=== PATIENT | male | born 1940 | race Caucasian/White ===

== ENCOUNTER 2018-03-02 08:49 | Inpatient (IN) | payer MEDICARE, BC ==
[2018-03-01 10:33] LABS: BASOPHILS % (AUTO) 0.7 % (0-1); EOSINOPHILS # (AUTO) 0.2 X10'3 (0-0.9); HEMATOCRIT 38.6 % (42.0-52.0); LYMPHOCYTES # (AUTO) 1.2 X10'3 (1.1-4.8); LYMPHOCYTES % (AUTO) 18.4 % (21-51); MEAN CORPUSCULAR HEMOGLOBIN 31.4 PG (27.0-31.0); MEAN CORPUSCULAR HGB CONC 33.7 % (33.0-36.5); MEAN CORPUSCULAR VOLUME 93.2 FL (78-98); MEAN PLATELET VOLUME 7.7 FL (7.4-10.4); MONOCYTES # (AUTO) 0.5 X10'3 (0-0.9); MONOCYTES % (AUTO) 7.2 % (2-12); NEUTROPHILS # (AUTO) 4.6 X10'3 (1.8-7.7); NEUTROPHILS % (AUTO) 70.7 % (42-75); PLATELET COUNT 241 X10'3 (140-440); RED BLOOD COUNT 4.14 X10'6 (4.70-6.10); RED CELL DISTRIBUTION WIDTH 14.1 % (11.5-14.5); WHITE BLOOD COUNT 6.5 X10'3 (4.5-11.0)
[2018-03-01 10:53] LABS: INR 1.1 INR; PARTIAL THROMBOPLASTIN TIME 27 SECONDS (22-32); PROTHROMBIN TIME 10.7 SECONDS (9.0-12.0)
[2018-03-01 10:54] LABS: ALBUMIN 3.7 G/DL (3.4-5.0); ANION GAP 6 (8-16); BLOOD UREA NITROGEN 11 MG/DL (7-18); BUN/CREATININE RATIO 10.5 (5.4-32.0); CALCIUM 9.2 MG/DL (8.5-10.1); CHLORIDE 100 MMOL/L (99-107); CHOL/HDL RATIO 2.1 (0.00-4.99); CHOLESTEROL 113 MG/DL (0-200); CREATININE 1.05 MG/DL (0.60-1.10); GLUCOSE 246 MG/DL (70-104); HDL CHOLESTEROL 53 MG/DL (35-60); LDL CHOLESTEROL 53 MG/DL (50-100); POTASSIUM 4.4 MMOL/L (3.5-5.1); SODIUM 135 MMOL/L (135-145); TOTAL CARBON DIOXIDE 28.9 MMOL/L (24-32); TRIGLYCERIDES 56 MG/DL (20-135); eGFR 68 ML/MIN
[~2018-03-02] VITALS: Ht 177.8 cm; Wt 96.0 kg
[2018-03-02] VITALS (15 sets, daily range): BP systolic 123–168; BP diastolic 62–77
[~2018-03-02 08:49] MED LIST: ASPI-1265 PO; ATOR40TA PO; BISO1TAB39 PO; CLOP75TA35 PO; FAMO-1 PO; GLUC-153 PO; LISI-222 PO; METF-436 PO; MULT-785 PO; NABU-102 PO; NIFE30TA88 PO; NITR0.4T SL; OMEG1CAP54 PO; VITA400T10 PO
[2018-03-02] MEDS ORDERED: normal saline 1000ml 1,000 ML IV SCH (09:05)
[2018-03-02] MEDS ORDERED: LORazepam 0.5 MG tablet PO PRN (09:05)
[2018-03-02] MEDS ORDERED: diphenhydrAMINE 25mg capsule PO PRN (09:05)
[2018-03-02] MEDS ORDERED: METH500C6 PO (09:20)
[2018-03-02] MEDS ORDERED: GLUC15006 PO (09:20)
[2018-03-02] MEDS ORDERED: ASCO500C15 PO (09:24)
[2018-03-02] MEDS ORDERED: KRIL1CAP19 PO (09:24)
[2018-03-02] MEDS ORDERED: CHOL10002 PO (09:24)
[2018-03-02] MEDS ORDERED: midazolam 2 mg/2 ml injection ONE ×2 (10:46→12:54)
[2018-03-02] MEDS ORDERED: fentaNYL/PF 50MCG/1 ML 2ML syringe ONE ×2 (10:46→12:54)
[2018-03-02] MEDS ORDERED: heparin 1,000unit/ml 10ml vial 10 ML ONE ×2 (10:47→12:54)
[2018-03-02] MEDS ORDERED: iohexol 350 MG/ML 50ML vial IV ONE (10:47)
[2018-03-02] MEDS ORDERED: nitroGLYCERIN-Tridil 50MG/D5W 250 ML IV ONE (10:47)
[2018-03-02] MEDS ORDERED: LIDOcaine 1% (10mg/ml)w/preservative injection 20ml MDV ONE (10:47)
[2018-03-02] MEDS ORDERED: iohexol 350MG/ML 100ml bottle IV ONE ×3 (10:47→11:57)
[2018-03-02] MEDS ORDERED: heparin 25,000 UNIT/250ml bag 250 ML IV ONE (11:57)
[2018-03-02] MEDS ORDERED: heparin 1,000 UNITS/NS 500ml 500 ML ONE (12:04)
[2018-03-02] MEDS ORDERED: clopidogrel 300mg tablet ONE (12:25)
[2018-03-02] MEDS ORDERED: heparin 25,000 UNIT/250ml bag 250 ML IV SCH (14:17)
[2018-03-02] MEDS ORDERED: heparin 10,000 units/1 ML INJ IV ONE (14:20)
[2018-03-02] MEDS ORDERED: heparin 10,000 units/1 ML INJ IV PRN (14:20)
[2018-03-02] MEDS ORDERED: acetaminophen 325mg tablet PO PRN (14:25)
[2018-03-02] MEDS ORDERED: proCHLORperazine 10 MG/2 ml inj IV PRN (14:25)
[2018-03-02] MEDS ORDERED: magnesium hydroxide 30ml (MOM) UD suspension PO PRN (14:25)
[2018-03-02] MEDS ORDERED: HYDROcodone/acetaminophen 10/325mg tab PO PRN ×2 (14:25)
[2018-03-02] MEDS ORDERED: cyclobenzaprine 10mg tablet PO PRN (14:25)
[2018-03-02] MEDS ORDERED: aspirin 81mg tab.chew PO ONE (14:30)
[2018-03-02] MEDS ORDERED: nitroGLYCERIN 0.4mg SUBLingual tab SL SCH (14:40)
[2018-03-02] MEDS ORDERED: LIDOcaine 1% 30ml preserv. free vial ONE (15:41)
[2018-03-02] MEDS: hydrALAZINE 20mg/ml inj. IV PRN (17:40)
[2018-03-02] MEDS ORDERED: metFORMIN 500mg tablet PO SCH (20:00)
[2018-03-02] MEDS ORDERED: NABUMETONE 500 MG PO SCH (20:00)
[2018-03-02] MEDS ORDERED: non-formulary drug (Atorvastatin Calcium* (Lipitor*) 80 MG) PO SCH (21:00)
[2018-03-02] MEDS ORDERED: famotidine 20mg tablet PO SCH (21:00)
[2018-03-02] MEDS ORDERED: atorvastatin 20mg tablet PO SCH (21:00)
[2018-03-02] MEDS: sulindac 150mg tablet PO SCH (21:48)
[2018-03-02] MEDS: docusate sod 100mg capsule PO SCH ×2 (21:48→21:52)
[2018-03-02 22:42] LABS: BASOPHILS % (AUTO) 0.3 % (0-1); EOSINOPHILS # (AUTO) 0.1 X10'3 (0-0.9); EOSINOPHILS % (AUTO) 0.9 % (0-6); HEMATOCRIT 37.6 % (42.0-52.0); HEMOGLOBIN 12.7 g/dl (14.0-17.9); LYMPHOCYTES # (AUTO) 1.2 X10'3 (1.1-4.8); LYMPHOCYTES % (AUTO) 11.2 % (21-51); MEAN CORPUSCULAR HEMOGLOBIN 31.5 PG (27.0-31.0); MEAN CORPUSCULAR HGB CONC 33.9 % (33.0-36.5); MEAN PLATELET VOLUME 7.9 FL (7.4-10.4); MONOCYTES # (AUTO) 0.7 X10'3 (0-0.9); MONOCYTES % (AUTO) 6.5 % (2-12); NEUTROPHILS # (AUTO) 8.7 X10'3 (1.8-7.7); NEUTROPHILS % (AUTO) 81.1 % (42-75); PLATELET COUNT 203 X10'3 (140-440); RED BLOOD COUNT 4.04 X10'6 (4.70-6.10); RED CELL DISTRIBUTION WIDTH 14.4 % (11.5-14.5); WHITE BLOOD COUNT 10.7 X10'3 (4.5-11.0)
[2018-03-02 22:47] LABS: ALBUMIN 3.2 G/DL (3.4-5.0); ANION GAP 9 (8-16); BLOOD UREA NITROGEN 8 MG/DL (7-18); BUN/CREATININE RATIO 10.3 (5.4-32.0); CALCIUM 8.5 MG/DL (8.5-10.1); CHLORIDE 101 MMOL/L (99-107); CREATININE 0.78 MG/DL (0.60-1.10); GLUCOSE 144 MG/DL (70-104); MAGNESIUM 1.6 MG/DL (1.5-2.4); POTASSIUM 3.9 MMOL/L (3.5-5.1); SODIUM 134 MMOL/L (135-145); TOTAL CARBON DIOXIDE 24.2 MMOL/L (24-32); eGFR > 90 ML/MIN
[2018-03-02 23:09] LABS: INR 1.1 INR; PARTIAL THROMBOPLASTIN TIME 25 SECONDS (22-32); PROTHROMBIN TIME 11.2 SECONDS (9.0-12.0)
[2018-03-02 23:27] LABS: CHOL/HDL RATIO 2.2 (0.00-4.99); CHOLESTEROL 110 MG/DL (0-200); HDL CHOLESTEROL 51 MG/DL (35-60); LDL CHOLESTEROL 50 MG/DL (50-100); TRIGLYCERIDES 60 MG/DL (20-135)
[2018-03-03] VITALS (11 sets, daily range): BP systolic 135–158; BP diastolic 65–82
[2018-03-03 04:30] LABS: BASOPHILS % (AUTO) 0.3 % (0-1); EOSINOPHILS # (AUTO) 0.1 X10'3 (0-0.9); EOSINOPHILS % (AUTO) 1.6 % (0-6); HEMATOCRIT 36.4 % (42.0-52.0); HEMOGLOBIN 12.3 g/dl (14.0-17.9); LYMPHOCYTES % (AUTO) 13.2 % (21-51); MEAN CORPUSCULAR HEMOGLOBIN 31.4 PG (27.0-31.0); MEAN CORPUSCULAR HGB CONC 33.9 % (33.0-36.5); MEAN CORPUSCULAR VOLUME 92.7 FL (78-98); MEAN PLATELET VOLUME 7.5 FL (7.4-10.4); MONOCYTES # (AUTO) 0.5 X10'3 (0-0.9); MONOCYTES % (AUTO) 5.9 % (2-12); NEUTROPHILS # (AUTO) 6.2 X10'3 (1.8-7.7); PLATELET COUNT 219 X10'3 (140-440); RED BLOOD COUNT 3.93 X10'6 (4.70-6.10); RED CELL DISTRIBUTION WIDTH 14.1 % (11.5-14.5); WHITE BLOOD COUNT 7.9 X10'3 (4.5-11.0)
[2018-03-03 04:48] LABS: CHOL/HDL RATIO 2.2 (0.00-4.99); CHOLESTEROL 106 MG/DL (0-200); HDL CHOLESTEROL 49 MG/DL (35-60); LDL CHOLESTEROL 49 MG/DL (50-100); TRIGLYCERIDES 43 MG/DL (20-135)
[2018-03-03] MEDS ORDERED: METF-436 PO (07:26)
[2018-03-03] MEDS ORDERED: OMEGA PO SCH (08:00)
[2018-03-03] MEDS ORDERED: clopidogrel 75mg tablet PO SCH ×2 (08:00)
[2018-03-03] MEDS ORDERED: FISH OIL PO SCH (08:00)
[2018-03-03] MEDS ORDERED: non-formulary drug (Cholecalciferol (Vitamin D3) (Vitamin D3) 1 TAB) PO SCH (08:00)
[2018-03-03] MEDS ORDERED: BISOPROLOL PO SCH (08:00)
[2018-03-03] MEDS ORDERED: non-formulary drug (Krill/Om-3/Dha/Epa/Phospho/Ast (Krill Oil 500 mg Softgel) 1 TAB) PO SCH (08:00)
[2018-03-03] MEDS ORDERED: HCTZ PO SCH (08:00)
[2018-03-03] MEDS ORDERED: NIFEdipine XL 30mg tablet PO SCH (08:00)
[2018-03-03] MEDS ORDERED: NIFEDIPINE 30 MG PO SCH (08:00)
[2018-03-03] MEDS ORDERED: lisinopril 20mg tablet PO SCH (08:00)
[2018-03-03] MEDS ORDERED: non-formulary drug (Glucosamine HCl 1 TAB) PO SCH (08:00)
[2018-03-03] MEDS ORDERED: FATTY ACIDS PO SCH (08:00)
[2018-03-03] MEDS ORDERED: vitamin D (cholecalciferol) 1,000 unit tablet PO SCH (08:00)
[2018-03-03] MEDS ORDERED: ascorbic acid 500mg tablet PO SCH (08:00)
[2018-03-03] MEDS ORDERED: ZIAC PO SCH (08:00)
[2018-03-03] MEDS ORDERED: aspirin 81mg tab.chew PO SCH ×2 (08:00)
[2018-03-03] MEDS: docusate sod 100mg capsule PO SCH (09:01)
[2018-03-03] MEDS: sulindac 150mg tablet PO SCH (09:25)
[2018-03-03] MEDS: hydrALAZINE 20mg/ml inj. IV PRN (09:43)
== END 2018-03-03 10:30 | disposition home or self-care (01) | DRG 247 ==
LOC: SSTAY O 08:49 → CICU 2S 13:30
PROVIDERS: ADMIT Internal Medicine Cardiovascular Disease; ATTEND Internal Medicine Cardiovascular Disease
PROC: 4A023N7 Measurement of Cardiac Sampling and Pressure, Left Heart, Percutaneous Approach (ICD-10-PCS; principal; 2018-03-02)
PROC: B2111ZZ Fluoroscopy of Multiple Coronary Arteries using Low Osmolar Contrast (ICD-10-PCS; 2018-03-02)
PROC: B2151ZZ Fluoroscopy of Left Heart using Low Osmolar Contrast (ICD-10-PCS; 2018-03-02)
PROC: B2181ZZ Fluoroscopy of Left Internal Mammary Bypass Graft using Low Osmolar Contrast (ICD-10-PCS; 2018-03-02)
PROC: B2131ZZ Fluoroscopy of Multiple Coronary Artery Bypass Grafts using Low Osmolar Contrast (ICD-10-PCS; 2018-03-02)
PROC: 027136Z Dilation of Coronary Artery, Two Arteries with Three Drug-eluting Intraluminal Devices, Percutaneous Approach (ICD-10-PCS; 2018-03-02)
PROC: 02703ZZ Dilation of Coronary Artery, One Artery, Percutaneous Approach (ICD-10-PCS; 2018-03-02)
DX: T82.855A Stenosis of coronary artery stent, initial encounter (principal); T82.898A Other specified complication of vascular prosthetic devices, implants and grafts, initial encounter; Y71.3 Surgical instruments, materials and cardiovascular devices (including sutures) associated with adverse incidents; E11.9 Type 2 diabetes mellitus without complications; I10 Essential (primary) hypertension; E78.5 Hyperlipidemia, unspecified; I25.10 Atherosclerotic heart disease of native coronary artery without angina pectoris; K21.9 Gastro-esophageal reflux disease without esophagitis; E66.9 Obesity, unspecified; Y83.2 Surgical operation with anastomosis, bypass or graft as the cause of abnormal reaction of the patient, or of later complication, without mention of misadventure at the time of the procedure; Z90.49 Acquired absence of other specified parts of digestive tract; Z95.1 Presence of aortocoronary bypass graft; Z79.82 Long term (current) use of aspirin; Z79.84 Long term (current) use of oral hypoglycemic drugs; Z79.1 Long term (current) use of non-steroidal anti-inflammatories (NSAID); Z79.899 Other long term (current) drug therapy; Z82.49 Family history of ischemic heart disease and other diseases of the circulatory system; Z82.3 Family history of stroke; Y92.89 Other specified places as the place of occurrence of the external cause; Z68.30 Body mass index [BMI] 30.0-30.9, adult
CPT/HCPCS: 92937; 93459; C9600; 36415; 80048; 80061; 82948; 83735; 85025; 85347; 85610; 85730; 92920; 93005; 93455; 99152; 99153; A4620; A6257; C1725; C1769; C1874; C1894; C9601; G0378; J0360; J1644; J2001; J2250; J3010; J3490; J7030; Q0163; Q9967

== ENCOUNTER 2019-03-08 06:47 | Day surgery (SDC) | payer MEDICARE, BC ==
[2019-03-07 10:18] LABS: BASOPHILS # (AUTO) 0.1 X10'3 (0-0.2); BASOPHILS % (AUTO) 1.4 % (0-1); EOSINOPHILS # (AUTO) 0.2 X10'3 (0-0.9); EOSINOPHILS % (AUTO) 3.3 % (0-6); HEMATOCRIT 36.5 % (42.0-52.0); HEMOGLOBIN 12.6 g/dl (14.0-17.9); LYMPHOCYTES # (AUTO) 1.2 X10'3 (1.1-4.8); LYMPHOCYTES % (AUTO) 20.4 % (21-51); MEAN CORPUSCULAR HGB CONC 34.6 g/dL (33.0-36.5); MEAN CORPUSCULAR VOLUME 92.4 FL (78-98); MEAN PLATELET VOLUME 7.6 FL (7.4-10.4); MONOCYTES # (AUTO) 0.6 X10'3 (0-0.9); MONOCYTES % (AUTO) 9.5 % (2-12); NEUTROPHILS % (AUTO) 65.4 % (42-75); PLATELET COUNT 228 X10'3 (140-440); RED BLOOD COUNT 3.95 X10'6 (4.70-6.10); RED CELL DISTRIBUTION WIDTH 13.4 % (11.5-14.5); WHITE BLOOD COUNT 6.1 X10'3 (4.5-11.0)
[2019-03-07 10:39] LABS: ALBUMIN 3.6 G/DL (3.4-5.0); ANION GAP 9 (8-16); BLOOD UREA NITROGEN 12 MG/DL (7-18); BUN/CREATININE RATIO 12.2 (5.4-32.0); CALCIUM 9.2 MG/DL (8.5-10.1); CHLORIDE 97 MMOL/L (99-107); CREATININE 0.98 MG/DL (0.60-1.10); GLUCOSE 227 MG/DL (70-104); POTASSIUM 4.4 MMOL/L (3.5-5.1); SODIUM 132 MMOL/L (135-145); TOTAL CARBON DIOXIDE 26.1 MMOL/L (24-32); eGFR 74 ML/MIN
[2019-03-07 10:51] LABS: PARTIAL THROMBOPLASTIN TIME 27 SECONDS (22-32)
[2019-03-08] VITALS (16 sets, daily range): BP systolic 131–163; BP diastolic 69–88
[~2019-03-08] VITALS: Ht 179.1 cm; Wt 91.5 kg
[~2019-03-08 06:47] MED LIST changes: +ASCO500C15 PO; +CHOL10002 PO; -GLUC-153 PO; +GLUC15006 PO; +KRIL1CAP19 PO; +METH500C6 PO; -MULT-785 PO; -VITA400T10 PO
[2019-03-08] MEDS ORDERED: diphenhydrAMINE 25mg capsule PO PRN (07:25)
[2019-03-08] MEDS ORDERED: LORazepam 0.5 MG tablet PO PRN (07:25)
[2019-03-08] MEDS: normal saline 1,000 ML IV SCH ×2 (07:54→17:14)
[2019-03-08] MEDS ORDERED: midazolam 2 mg/2 ml injection ONE (09:16)
[2019-03-08] MEDS ORDERED: heparin 1,000unit/ml 10ml vial 10 ML ONE (09:16)
[2019-03-08] MEDS ORDERED: LIDOcaine 1% (10mg/ml)w/preservative injection 20ml MDV ONE (09:16)
[2019-03-08] MEDS ORDERED: fentaNYL/PF 50MCG/1 ML 2ML syringe ONE (09:16)
[2019-03-08] MEDS ORDERED: iohexol 350MG/ML 100ml bottle IV ONE ×2 (09:16→10:02)
[2019-03-08] MEDS ORDERED: iohexol 350 MG/ML 50ML vial IV ONE (09:16)
[2019-03-08] MEDS ORDERED: nitroGLYCERIN-Tridil 50MG/D5W 250 ML IV ONE (09:17)
== END 2019-03-08 20:00 | disposition home or self-care (01) ==
LOC: SSTAY O 06:47
PROVIDERS: ATTEND Internal Medicine Cardiovascular Disease
DX: R94.39 Abnormal result of other cardiovascular function study (principal); I25.10 Atherosclerotic heart disease of native coronary artery without angina pectoris; I25.82 Chronic total occlusion of coronary artery; I10 Essential (primary) hypertension; E11.9 Type 2 diabetes mellitus without complications; E78.5 Hyperlipidemia, unspecified; I25.2 Old myocardial infarction; E66.3 Overweight; Z68.29 Body mass index [BMI] 29.0-29.9, adult; Z95.5 Presence of coronary angioplasty implant and graft; Z87.891 Personal history of nicotine dependence; Z98.41 Cataract extraction status, right eye; Z98.42 Cataract extraction status, left eye; Z72.89 Other problems related to lifestyle; Z79.899 Other long term (current) drug therapy; Z79.01 Long term (current) use of anticoagulants; Z98.890 Other specified postprocedural states; Z90.49 Acquired absence of other specified parts of digestive tract; Z79.84 Long term (current) use of oral hypoglycemic drugs
CPT/HCPCS: 36415; 80048; 82948; 85025; 85610; 85730; 93005; 93459; 99152; 99153; C1769; J1644; J2001; J2250; J3010; J7030; Q0163; Q9967; A4620; A6258; C1760; C1894; J3490

== ENCOUNTER 2022-04-29 09:42 | Inpatient (IN) | payer MEDICARE, BC ==
[~2022-04-29] VITALS: Ht 177.8 cm; Wt 91.4 kg
[~2022-04-29 09:42] MED LIST changes: -ASCO500C15 PO; +ASCO500C18 PO; +CLOP75TA34 PO; -CLOP75TA35 PO; +NIFE-34 PO; -NIFE30TA88 PO
[2022-04-29 10:44] LABS: BASOPHILS # (AUTO) 0.1 X10'3 (0-0.2); BASOPHILS % (AUTO) 0.9 % (0-1); EOSINOPHILS # (AUTO) 0.1 X10'3 (0-0.9); EOSINOPHILS % (AUTO) 1.7 % (0-6); LYMPHOCYTES % (AUTO) 13.5 % (21-51); MEAN CORPUSCULAR HEMOGLOBIN 24.9 PG (27.0-31.0); MEAN CORPUSCULAR HGB CONC 31.1 g/dL (33.0-36.5); MEAN CORPUSCULAR VOLUME 79.8 FL (78-98); MEAN PLATELET VOLUME 7.8 FL (7.4-10.4); MONOCYTES # (AUTO) 0.7 X10'3 (0-0.9); MONOCYTES % (AUTO) 9.6 % (2-12); NEUTROPHILS # (AUTO) 5.4 X10'3 (1.8-7.7); NEUTROPHILS % (AUTO) 74.3 % (42-75); PLATELET COUNT 331 X10'3 (140-440); RED BLOOD COUNT 2.75 X10'6 (4.70-6.10); RED CELL DISTRIBUTION WIDTH 16.1 % (11.5-14.5); WHITE BLOOD COUNT 7.3 X10'3 (4.5-11.0)
[2022-04-29 10:52] LABS: HEMATOCRIT 21.9 % (42.0-52.0); HEMOGLOBIN 6.8 g/dl (14.0-17.9)
[2022-04-29] MEDS ORDERED: BISO-2 PO ×2 (11:11→12:59)
[2022-04-29 11:16] LABS: ALANINE AMINOTRANSFERASE 23 U/L (12-78); ALBUMIN 3.5 G/DL (3.4-5.0); ALBUMIN/GLOBULIN RATIO 0.9 (1.1-1.5); ALKALINE PHOSPHATASE 105 IU/L (46-116); ANION GAP 10 (8-16); ASPARTATE AMINO TRANSFERASE 25 U/L (10-37); BILIRUBIN,TOTAL 0.5 MG/DL (0.1-1.0); BLOOD UREA NITROGEN 15 MG/DL (7-18); BUN/CREATININE RATIO 13.3 (5.4-32.0); CALCIUM 8.8 MG/DL (8.5-10.1); CHLORIDE 98 MMOL/L (99-107); CREATININE 1.13 MG/DL (0.60-1.10); GLUCOSE 145 MG/DL (70-104); POTASSIUM 4.4 MMOL/L (3.5-5.1); SODIUM 132 MMOL/L (135-145); TOTAL CARBON DIOXIDE 23.9 MMOL/L (24-32); TOTAL PROTEIN 7.6 G/DL (6.4-8.2); eGFR 62 ML/MIN
--- NOTE | 2022-04-29 11:48 | NUR ---
KAYLA MCRAE MADE AWARE 1 UNIT BLOOD READY PER [facility].
[2022-04-29 11:55] VITALS: BP 145/74
--- NOTE | 2022-04-29 12:03 | NUR ---
1st unit of blood started, pt occult positive by dr rosado.
[2022-04-29] MEDS ORDERED: potassium Cl 40MEQ/1/2NS 520ml 520 ML IV PRN (12:10)
[2022-04-29] MEDS ORDERED: magnesium Cl slow-release 64mg tablet PO PRN (12:10)
[2022-04-29] MEDS ORDERED: magnesium 4gm in 100ml NS 100 ML IV PRN (12:10)
[2022-04-29] MEDS ORDERED: potassium Cl 20 mEq SR tablet PO PRN ×2 (12:10)
[2022-04-29 12:13] VITALS: BP 147/73
[2022-04-29] MEDS: normal saline 1000ml 1,000 ML IV SCH (12:47)
[2022-04-29] MEDS ORDERED: CLOP75TA34 PO (12:59)
[2022-04-29] MEDS ORDERED: FAMO-1 PO (12:59)
[2022-04-29] MEDS ORDERED: LISI20TA28 PO (12:59)
[2022-04-29] MEDS ORDERED: METF-438 PO (12:59)
[2022-04-29] MEDS ORDERED: ASPI-611 PO (13:00)
[2022-04-29 13:08] VITALS: BP 152/82
[2022-04-29 13:59] VITALS: BP 147/80
[2022-04-29] MEDS: clopidogrel 75mg tablet PO SCH (16:10)
[2022-04-29] MEDS: lisinopril 20mg tablet PO SCH (16:10)
[2022-04-29] MEDS: famotidine 20mg tablet PO SCH (19:54)
[2022-04-29] MEDS: K and/or MAG REPLACEMENT MC SCH (20:00)
[2022-04-29] MEDS: pantoprazole 40mg IV 40 MG in normal saline 100ml IV soln 100 ML IV SCH (20:00)
[2022-04-29 23:49] VITALS: BP 175/87
[2022-04-30] VITALS (10 sets, daily range): BP systolic 120–172; BP diastolic 50–92
[2022-04-30] MEDS: normal saline 1000ml 1,000 ML IV SCH ×3 (00:23→20:49)
[2022-04-30 07:02] LABS: BASOPHILS # (AUTO) 0.1 X10'3 (0-0.2); BASOPHILS % (AUTO) 1.6 % (0-1); EOSINOPHILS % (AUTO) 0.7 % (0-6); HEMATOCRIT 22.7 % (42.0-52.0); HEMOGLOBIN 7.2 g/dl (14.0-17.9); LYMPHOCYTES % (AUTO) 14.1 % (21-51); MEAN CORPUSCULAR HGB CONC 31.7 g/dL (33.0-36.5); MEAN CORPUSCULAR VOLUME 78.9 FL (78-98); MEAN PLATELET VOLUME 7.7 FL (7.4-10.4); MONOCYTES # (AUTO) 0.7 X10'3 (0-0.9); MONOCYTES % (AUTO) 9.4 % (2-12); NEUTROPHILS # (AUTO) 5.2 X10'3 (1.8-7.7); NEUTROPHILS % (AUTO) 74.2 % (42-75); PLATELET COUNT 294 X10'3 (140-440); RED BLOOD COUNT 2.87 X10'6 (4.70-6.10); RED CELL DISTRIBUTION WIDTH 16.5 % (11.5-14.5)
[2022-04-30 07:28] LABS: ALBUMIN 3.1 G/DL (3.4-5.0); ANION GAP 9 (8-16); BLOOD UREA NITROGEN 15 MG/DL (7-18); BUN/CREATININE RATIO 15.3 (5.4-32.0); CALCIUM 8.2 MG/DL (8.5-10.1); CHLORIDE 98 MMOL/L (99-107); CREATININE 0.98 MG/DL (0.60-1.10); GLUCOSE 109 MG/DL (70-104); MAGNESIUM 1.9 MG/DL (1.5-2.4); POTASSIUM 4.1 MMOL/L (3.5-5.1); SODIUM 131 MMOL/L (135-145); TOTAL CARBON DIOXIDE 23.8 MMOL/L (24-32); eGFR 73 ML/MIN
[2022-04-30] MEDS: K and/or MAG REPLACEMENT MC SCH ×2 (08:00→20:00)
[2022-04-30 08:06] LABS: HEMOGLOBIN A1C 6.6 % (4.5-6.2)
[2022-04-30] MEDS: clopidogrel 75mg tablet PO SCH (08:39)
[2022-04-30] MEDS: pantoprazole 40mg IV 40 MG in normal saline 100ml IV soln 100 ML IV SCH ×2 (08:39→21:03)
[2022-04-30] MEDS: lisinopril 20mg tablet PO SCH (08:39)
--- NOTE | 2022-04-30 12:20 | NUR ---
"DR. MENDEZ, PTJennifer KO, ROOM 3012C, STILL NPO FOR POSSIBLE GI BLEED INTERVENTIONS. ANY PLANS FOR HIM OR WE CAN FEED HIM. THANKS KINA VUU"
[2022-04-30] MEDS ORDERED: MIDAZolam 1 MG/ML 5ML VIAL ONE (15:49)
[2022-04-30] MEDS ORDERED: LIDOcaine Viscous 15ml cup ONE (15:49)
[2022-04-30] MEDS ORDERED: fentaNYL/PF 50MCG/1 ML 2ML syringe ONE (15:49)
[2022-04-30] MEDS: famotidine 20mg tablet PO SCH (20:50)
[2022-05-01] VITALS (9 sets, daily range): BP systolic 140–177; BP diastolic 69–81
[2022-05-01] MEDS: normal saline 1000ml 1,000 ML IV SCH ×2 (04:10→14:54)
[2022-05-01 06:15] LABS: BASOPHILS % (AUTO) 0.4 % (0-1); EOSINOPHILS % (AUTO) 0.4 % (0-6); LYMPHOCYTES # (AUTO) 0.6 X10'3 (1.1-4.8); LYMPHOCYTES % (AUTO) 7.6 % (21-51); MEAN CORPUSCULAR HEMOGLOBIN 25.3 PG (27.0-31.0); MEAN CORPUSCULAR HGB CONC 31.8 g/dL (33.0-36.5); MEAN CORPUSCULAR VOLUME 79.7 FL (78-98); MONOCYTES # (AUTO) 0.8 X10'3 (0-0.9); MONOCYTES % (AUTO) 10.7 % (2-12); NEUTROPHILS # (AUTO) 6.3 X10'3 (1.8-7.7); NEUTROPHILS % (AUTO) 80.9 % (42-75); PLATELET COUNT 253 X10'3 (140-440); RED BLOOD COUNT 2.74 X10'6 (4.70-6.10); RED CELL DISTRIBUTION WIDTH 16.7 % (11.5-14.5); WHITE BLOOD COUNT 7.8 X10'3 (4.5-11.0)
[2022-05-01 06:20] LABS: HEMATOCRIT 21.8 % (42.0-52.0); HEMOGLOBIN 6.9 g/dl (14.0-17.9)
[2022-05-01 06:33] LABS: ANION GAP 7 (8-16); BLOOD UREA NITROGEN 17 MG/DL (7-18); BUN/CREATININE RATIO 16.3 (5.4-32.0); CALCIUM 8.1 MG/DL (8.5-10.1); CHLORIDE 101 MMOL/L (99-107); CREATININE 1.04 MG/DL (0.60-1.10); GLUCOSE 143 MG/DL (70-104); MAGNESIUM 1.8 MG/DL (1.5-2.4); SODIUM 133 MMOL/L (135-145); TOTAL CARBON DIOXIDE 24.8 MMOL/L (24-32); eGFR 68 ML/MIN
--- NOTE | 2022-05-01 06:44 | NUR ---
T.O. received from to transfuse 1 unit PRBC
[2022-05-01] MEDS ORDERED: acetaminophen 325mg tablet PO ONE (07:15)
[2022-05-01] MEDS: K and/or MAG REPLACEMENT MC SCH ×2 (08:00→19:26)
[2022-05-01] MEDS: clopidogrel 75mg tablet PO SCH (08:23)
[2022-05-01] MEDS: lisinopril 20mg tablet PO SCH (08:24)
[2022-05-01] MEDS: pantoprazole 40mg IV 40 MG in normal saline 100ml IV soln 100 ML IV SCH ×2 (09:01→20:01)
[2022-05-01 12:01] LABS: HEMATOCRIT 24.2 % (42.0-52.0); HEMOGLOBIN 7.9 g/dl (14.0-17.9); MEAN CORPUSCULAR HEMOGLOBIN 26.3 PG (27.0-31.0); MEAN CORPUSCULAR HGB CONC 32.6 g/dL (33.0-36.5); MEAN CORPUSCULAR VOLUME 80.7 FL (78-98); MEAN PLATELET VOLUME 7.8 FL (7.4-10.4); PLATELET COUNT 253 X10'3 (140-440); RED CELL DISTRIBUTION WIDTH 16.9 % (11.5-14.5); WHITE BLOOD COUNT 7.8 X10'3 (4.5-11.0)
--- NOTE | 2022-05-01 13:03 | NUR ---
HI DR. MENDEZ, PT [place], ROOM 3012C ALREADY RECEIVED 1 UNIT OF PRBC THIS MORNING PER DR. GOMEZ. HIS HGB NOW 7. 9. DO YOU STILL WANT TO TRANSFUSE 2ND UNIT? THANKS KINA VUU
[2022-05-01] MEDS: famotidine 20mg tablet PO SCH (20:01)
[2022-05-02] MEDS: normal saline 1000ml 1,000 ML IV SCH ×2 (00:10→10:03)
[2022-05-02 06:35] LABS: BASOPHILS # (AUTO) 0.1 X10'3 (0-0.2); BASOPHILS % (AUTO) 0.7 % (0-1); EOSINOPHILS # (AUTO) 0.1 X10'3 (0-0.9); EOSINOPHILS % (AUTO) 1.5 % (0-6); HEMATOCRIT 25.8 % (42.0-52.0); HEMOGLOBIN 8.3 g/dl (14.0-17.9); LYMPHOCYTES # (AUTO) 0.8 X10'3 (1.1-4.8); LYMPHOCYTES % (AUTO) 10.1 % (21-51); MEAN CORPUSCULAR HEMOGLOBIN 25.8 PG (27.0-31.0); MEAN CORPUSCULAR VOLUME 80.6 FL (78-98); MEAN PLATELET VOLUME 8.1 FL (7.4-10.4); MONOCYTES # (AUTO) 0.9 X10'3 (0-0.9); NEUTROPHILS # (AUTO) 5.6 X10'3 (1.8-7.7); NEUTROPHILS % (AUTO) 75.7 % (42-75); PLATELET COUNT 242 X10'3 (140-440); RED BLOOD COUNT 3.21 X10'6 (4.70-6.10); RED CELL DISTRIBUTION WIDTH 17.4 % (11.5-14.5); WHITE BLOOD COUNT 7.5 X10'3 (4.5-11.0)
[2022-05-02 06:53] LABS: ALBUMIN 3.2 G/DL (3.4-5.0); ANION GAP 9 (8-16); BLOOD UREA NITROGEN 13 MG/DL (7-18); BUN/CREATININE RATIO 14.8 (5.4-32.0); CALCIUM 8.3 MG/DL (8.5-10.1); CHLORIDE 99 MMOL/L (99-107); CREATININE 0.88 MG/DL (0.60-1.10); GLUCOSE 143 MG/DL (70-104); MAGNESIUM 1.7 MG/DL (1.5-2.4); POTASSIUM 3.9 MMOL/L (3.5-5.1); SODIUM 132 MMOL/L (135-145); eGFR 83 ML/MIN
[2022-05-02 07:00] VITALS: BP 153/77
--- NOTE | 2022-05-02 07:36 | NUR ---
"CHEST XRAY FOR PT XUAN, ROOM 8964L THANKS"
[2022-05-02] MEDS: K and/or MAG REPLACEMENT MC SCH ×2 (08:00→19:41)
[2022-05-02] MEDS: clopidogrel 75mg tablet PO SCH (10:01)
[2022-05-02] MEDS: lisinopril 20mg tablet PO SCH (10:01)
[2022-05-02] MEDS: pantoprazole 40mg IV 40 MG in normal saline 100ml IV soln 100 ML IV SCH ×2 (10:02→19:38)
[2022-05-02] MEDS ORDERED: furosemide 20 MG/2 ML vial IV ONE (12:15)
[2022-05-02 13:00] VITALS: BP 157/75
[2022-05-02] MEDS ORDERED: PERFLUTREN PROTEIN-A MICROSPHR (Optison) 0.22 MG/ML 3ML VIAL IV ONE (14:45)
--- NOTE | 2022-05-02 17:06 | NUR ---
"ECHO ORDER FOR PT MAIKEL, ROOM 0635W. THANKS"
[2022-05-02 18:47] VITALS: BP 145/79
[2022-05-02] MEDS: famotidine 20mg tablet PO SCH (20:02)
[2022-05-02 22:25] VITALS: BP 164/83
[2022-05-03 02:00] VITALS: BP 165/80
[2022-05-03 06:53] LABS: BASOPHILS # (AUTO) 0.1 X10'3 (0-0.2); BASOPHILS % (AUTO) 0.8 % (0-1); EOSINOPHILS # (AUTO) 0.1 X10'3 (0-0.9); EOSINOPHILS % (AUTO) 1.7 % (0-6); HEMATOCRIT 24.6 % (42.0-52.0); MEAN CORPUSCULAR HEMOGLOBIN 26.1 PG (27.0-31.0); MEAN CORPUSCULAR HGB CONC 32.5 g/dL (33.0-36.5); MEAN CORPUSCULAR VOLUME 80.4 FL (78-98); MONOCYTES % (AUTO) 13.5 % (2-12); NEUTROPHILS # (AUTO) 5.3 X10'3 (1.8-7.7); PLATELET COUNT 235 X10'3 (140-440); RED BLOOD COUNT 3.06 X10'6 (4.70-6.10); RED CELL DISTRIBUTION WIDTH 17.5 % (11.5-14.5); WHITE BLOOD COUNT 7.5 X10'3 (4.5-11.0)
[2022-05-03 07:00] VITALS: BP 160/77
[2022-05-03 07:10] LABS: ALBUMIN 3.1 G/DL (3.4-5.0); ANION GAP 7 (8-16); BLOOD UREA NITROGEN 12 MG/DL (7-18); BUN/CREATININE RATIO 12.9 (5.4-32.0); CALCIUM 8.5 MG/DL (8.5-10.1); CHLORIDE 98 MMOL/L (99-107); CREATININE 0.93 MG/DL (0.60-1.10); GLUCOSE 135 MG/DL (70-104); MAGNESIUM 1.9 MG/DL (1.5-2.4); POTASSIUM 3.7 MMOL/L (3.5-5.1); SODIUM 133 MMOL/L (135-145); TOTAL CARBON DIOXIDE 27.7 MMOL/L (24-32); eGFR 78 ML/MIN
[2022-05-03] MEDS: pantoprazole 40mg IV 40 MG in normal saline 100ml IV soln 100 ML IV SCH ×2 (08:00→19:57)
[2022-05-03] MEDS: clopidogrel 75mg tablet PO SCH (08:00)
[2022-05-03] MEDS: K and/or MAG REPLACEMENT MC SCH ×2 (08:00→19:58)
[2022-05-03] MEDS: lisinopril 20mg tablet PO SCH (09:19)
--- NOTE | 2022-05-03 09:29 | NUR ---
"MORNING DR. MENDEZ, PT [place], ROOM 3012C C/O RIGHT CHEST PAIN RADIATING IN THE BACK. WE ARE GETTING EKG PER PROTOCOL. HE DOESN'T HAVE ANYTHING FOR PAIN. ANY ORDERS? THANKS KINA VUU"
[2022-05-03 14:00] VITALS: BP 160/79
--- NOTE | 2022-05-03 14:12 | NUR ---
DR. MENDEZ, I AM STILL WAITING FOR ORDERS: PT [facility] ROOM 3012C- PAIN AND HE SAID YOU WANTED ANOTHER CHEST X-RAY? THANK YOU HORACE PCU
[2022-05-03] MEDS ORDERED: ibuprofen tablet 400 MG TABLET PO PRN (15:35)
[2022-05-03] MEDS ORDERED: acetaminophen 325mg tablet PO PRN (15:35)
[2022-05-03] MEDS ORDERED: morphine 2 MG/ML inj. syringe IV PRN (15:35)
--- NOTE | 2022-05-03 15:44 | NUR ---
"CHEST X-RAY FOR PT XUAN, ROOM 3019D, PLEASE THANK YOU HORACE PCU"
--- NOTE | 2022-05-03 16:08 | NUR ---
"DR. MENDEZ, MAY WE HAVE ORDER SMALL DOSE OF BENADRYL FOR PT XUAN, PLEASE. MORPHINE MADE HIA A LITTLE ITCHY. THANKS ORIANA VU"
--- NOTE | 2022-05-03 16:26 | NUR ---
PAGER ID: [phone] MESSAGE: [email or web address], WE NEED AN ORDER FOR BENADRYL ON 3012C FOR ITCHING AFTER MORPHINE ADMINISTRATION. THX. (105 character message out of a maximum of 240) CLOSE [X] SEND ANOTHER PAGE Thank you for visiting [facility] promotional table spacer promotional table spacer
[2022-05-03] MEDS ORDERED: diphenhydrAMINE 25mg capsule PO ONE (16:45)
[2022-05-03 18:00] VITALS: BP 166/80
[2022-05-03] MEDS: furosemide 20 MG/2 ML vial IV SCH (19:08)
[2022-05-03] MEDS: famotidine 20mg tablet PO SCH (20:00)
[2022-05-03] MEDS: CefTRIAXone/D5W-Rocephin 1gm 50 ML IV SCH (22:27)
[2022-05-03 22:40] VITALS: BP 164/71
[2022-05-04 03:00] VITALS: BP 151/74
[2022-05-04 07:00] VITALS: BP 138/41
[2022-05-04 07:22] LABS: BASOPHILS % (AUTO) 0.5 % (0-1); EOSINOPHILS # (AUTO) 0.1 X10'3 (0-0.9); EOSINOPHILS % (AUTO) 0.7 % (0-6); HEMATOCRIT 24.4 % (42.0-52.0); LYMPHOCYTES # (AUTO) 0.9 X10'3 (1.1-4.8); LYMPHOCYTES % (AUTO) 11.6 % (21-51); MEAN CORPUSCULAR HEMOGLOBIN 26.2 PG (27.0-31.0); MEAN CORPUSCULAR VOLUME 79.6 FL (78-98); MEAN PLATELET VOLUME 7.8 FL (7.4-10.4); MONOCYTES # (AUTO) 1.2 X10'3 (0-0.9); MONOCYTES % (AUTO) 15.2 % (2-12); NEUTROPHILS # (AUTO) 5.7 X10'3 (1.8-7.7); PLATELET COUNT 217 X10'3 (140-440); RED BLOOD COUNT 3.06 X10'6 (4.70-6.10); RED CELL DISTRIBUTION WIDTH 18.4 % (11.5-14.5); WHITE BLOOD COUNT 7.9 X10'3 (4.5-11.0)
[2022-05-04] MEDS: K and/or MAG REPLACEMENT MC SCH ×2 (08:00→20:00)
[2022-05-04 08:17] LABS: ALBUMIN 2.8 G/DL (3.4-5.0); ANION GAP 6 (8-16); BLOOD UREA NITROGEN 10 MG/DL (7-18); BUN/CREATININE RATIO 10.1 (5.4-32.0); CALCIUM 8.2 MG/DL (8.5-10.1); CHLORIDE 97 MMOL/L (99-107); CREATININE 0.99 MG/DL (0.60-1.10); GLUCOSE 137 MG/DL (70-104); POTASSIUM 3.6 MMOL/L (3.5-5.1); SODIUM 132 MMOL/L (135-145); TOTAL CARBON DIOXIDE 29.3 MMOL/L (24-32); eGFR 72 ML/MIN
[2022-05-04] MEDS: pantoprazole 40mg IV 40 MG in normal saline 100ml IV soln 100 ML IV SCH ×2 (08:52→18:48)
[2022-05-04] MEDS: azithromycin/NS 500mg/250ml 250 ML IV SCH (08:52)
[2022-05-04] MEDS: CefTRIAXone/D5W-Rocephin 1gm 50 ML IV SCH (08:52)
[2022-05-04] MEDS: furosemide 20 MG/2 ML vial IV SCH (08:53)
[2022-05-04] MEDS: clopidogrel 75mg tablet PO SCH (08:53)
[2022-05-04] MEDS: lisinopril 20mg tablet PO SCH (08:53)
[2022-05-04 10:05] LABS: ACANTHOCYTES 2+; ANISOCYTOSIS 2+; MICROCYTOSIS 1+; PLATELET ESTIMATE NORMAL
[2022-05-04 10:06] LABS: ELLIPTOCYTES FEW; HYPOCHROMASIA 1+
[2022-05-04 11:57] VITALS: BP 139/50
--- NOTE | 2022-05-04 12:44 | NUR ---
Initial: Pt admit DX GIB w/ duodenitis, bilateral pleural effusions, chronic anemia, CAD, T2DM A1C 6.6%, HTN, and hyponatremia per EMR. PO ~82% avg heart healthy diet up to 100% at times including two most recent meals meeting 96% kcal and 98% protein estimated needs. Serum Na 132mmol/L this AM receiving daily lasix per EMR. LBM 05/04. No nutrition interventions at this time. Will continue to follow. Rec: 1. continue heart healthy diet per MD; consider liberalizing to regular if hyponatremia persists 2. routine bowel care 3. weekly wts Addendum: 05/04/22 at [address] Amended: Links added.
[2022-05-04 18:00] VITALS: BP 133/72
--- NOTE | 2022-05-04 18:19 | NUR ---
Problems reprioritized. Patient report given, questions answered & plan of care reviewed with Rehan GARZA.
--- NOTE | 2022-05-04 19:01 | NUR ---
Got shift report from bina GARZA. Assuming patient care
[2022-05-04 22:50] VITALS: BP 134/78
[2022-05-05 02:00] VITALS: BP 141/80
--- NOTE | 2022-05-05 06:00 | NUR ---
gave shift report to Katya and now is assuming patient care
--- NOTE | 2022-05-05 06:38 | NUR ---
Patient in room PCU 3012. I have received report from Rehan GARZA and had the opportunity to ask questions and assume patient care.
[2022-05-05 07:00] VITALS: BP 144/72
[2022-05-05] MEDS: pantoprazole 40mg IV 40 MG in normal saline 100ml IV soln 100 ML IV SCH ×2 (07:45→19:29)
[2022-05-05] MEDS: clopidogrel 75mg tablet PO SCH (07:45)
[2022-05-05] MEDS: furosemide 20 MG/2 ML vial IV SCH (07:45)
[2022-05-05] MEDS: lisinopril 20mg tablet PO SCH (07:47)
[2022-05-05] MEDS: K and/or MAG REPLACEMENT MC SCH ×2 (08:00→20:00)
[2022-05-05] MEDS: CefTRIAXone/D5W-Rocephin 1gm 50 ML IV SCH (08:08)
[2022-05-05] MEDS: azithromycin/NS 500mg/250ml 250 ML IV SCH (09:22)
[2022-05-05 10:10] VITALS: BP 149/84
[2022-05-05 10:29] VITALS: BP 146/78
[2022-05-05 11:07] VITALS: BP 146/84
[2022-05-05 11:17] LABS: BFSOURCE PLEURAL FLD
[2022-05-05 11:33] LABS: GLUCOSE,BODY FLUID 158 MG/DL; LDH,BODY FLUID 75 U/L
[2022-05-05 14:14] LABS: BFAPPEAR CLEAR
[2022-05-05 14:15] LABS: BFCOLOR YELLOW; BFVOLUME 48 ML
[2022-05-05 14:16] LABS: BF RBC COUNT 410 /CU MM; BF WBC COUNT 500 /CU MM (0-1000)
[2022-05-05 14:17] LABS: LYMPHOCYTES,BODY FLUID 69 %; MONOCYTES,BODY FLUID 19 %; NEUTROPHILS,BODY FLUID 12 %
[2022-05-05 14:18] LABS: BF MESOTHELIAL CELLS OCCASIONAL; OTHER CELLS,BODY FLUID MACROPHAGES
[2022-05-05 18:00] VITALS: BP 161/86
--- NOTE | 2022-05-05 18:37 | NUR ---
Problems reprioritized. Patient report given, questions answered & plan of care reviewed with Rehan GARZA, patient stable at transfer of care.
[2022-05-05 18:56] LABS: BASOPHILS % (AUTO) 0.2 % (0-1); EOSINOPHILS % (AUTO) 0.5 % (0-6); HEMATOCRIT 26.1 % (42.0-52.0); HEMOGLOBIN 8.7 g/dl (14.0-17.9); LYMPHOCYTES # (AUTO) 0.7 X10'3 (1.1-4.8); LYMPHOCYTES % (AUTO) 7.4 % (21-51); MEAN CORPUSCULAR HEMOGLOBIN 26.4 PG (27.0-31.0); MEAN CORPUSCULAR HGB CONC 33.2 g/dL (33.0-36.5); MEAN CORPUSCULAR VOLUME 79.4 FL (78-98); MONOCYTES # (AUTO) 1.1 X10'3 (0-0.9); MONOCYTES % (AUTO) 11.2 % (2-12); NEUTROPHILS # (AUTO) 7.9 X10'3 (1.8-7.7); NEUTROPHILS % (AUTO) 80.7 % (42-75); PLATELET COUNT 232 X10'3 (140-440); RED BLOOD COUNT 3.28 X10'6 (4.70-6.10); RED CELL DISTRIBUTION WIDTH 18.3 % (11.5-14.5); WHITE BLOOD COUNT 9.8 X10'3 (4.5-11.0)
[2022-05-05 19:16] LABS: ALANINE AMINOTRANSFERASE 17 U/L (12-78); ALBUMIN 2.8 G/DL (3.4-5.0); ALBUMIN/GLOBULIN RATIO 0.7 (1.1-1.5); ALKALINE PHOSPHATASE 99 IU/L (46-116); ANION GAP 4 (8-16); ASPARTATE AMINO TRANSFERASE 18 U/L (10-37); BILIRUBIN,TOTAL 0.5 MG/DL (0.1-1.0); BLOOD UREA NITROGEN 16 MG/DL (7-18); BUN/CREATININE RATIO 15.5 (5.4-32.0); CALCIUM 8.3 MG/DL (8.5-10.1); CHLORIDE 95 MMOL/L (99-107); CREATININE 1.03 MG/DL (0.60-1.10); GLUCOSE 211 MG/DL (70-104); POTASSIUM 4.1 MMOL/L (3.5-5.1); SODIUM 129 MMOL/L (135-145); TOTAL CARBON DIOXIDE 30.4 MMOL/L (24-32); TOTAL PROTEIN 6.9 G/DL (6.4-8.2); eGFR 69 ML/MIN
[2022-05-06 02:51] VITALS: BP 136/75
--- NOTE | 2022-05-06 06:20 | NUR ---
Patient in room PCU 3012. I have received report from Rehan GARZA and had the opportunity to ask questions and assume patient care.
--- NOTE | 2022-05-06 06:23 | NUR ---
Problems reprioritized. Patient report given, questions answered & plan of care reviewed with Katya GARZA, patient stable at transfer of care.
[2022-05-06 07:09] VITALS: BP 137/79
[2022-05-06] MEDS: K and/or MAG REPLACEMENT MC SCH ×2 (08:00→20:00)
[2022-05-06] MEDS: clopidogrel 75mg tablet PO SCH (08:02)
[2022-05-06] MEDS: pantoprazole 40mg IV 40 MG in normal saline 100ml IV soln 100 ML IV SCH ×2 (08:03→20:30)
[2022-05-06] MEDS: lisinopril 20mg tablet PO SCH (08:03)
[2022-05-06] MEDS: CefTRIAXone/D5W-Rocephin 1gm 50 ML IV SCH (08:50)
[2022-05-06] MEDS: atenolol 50mg tablet PO SCH (10:15)
--- NOTE | 2022-05-06 14:06 | NUR ---
O2 Sat at rest on room air:__96_% If below 89%: Recovery O2 Sat at rest on ___LPM:___%:___% via (mask/nasal cannula, etc..) No further documentation is necessary. If O2 Sat did not drop below 89% on room air,ambulate patient on room air. O2 Sat while ambulating on room air:_84__% Recovery O2 Sat while ambulating on _2__LPM:_95__% No further documentation is necessary. If patient does not drop below 89% while ambulating, he/she does not qualify for home O2.
[2022-05-06] MEDS ORDERED: ATEN50TA41 PO (16:55)
--- NOTE | 2022-05-06 17:43 | NUR ---
PAGER ID: [phone] MESSAGE: [phone], Roxanne Avina. Home O2 was delivered, are they going home? Katya [facility] 0401
[2022-05-06 18:00] VITALS: BP 138/69
--- NOTE | 2022-05-06 18:00 | NUR ---
Patient in room PCU 3012. I have received report from Katya GARZA and had the opportunity to ask questions and assume patient care.
[2022-05-06] MEDS ORDERED: furosemide 40mg/4ml inj IV ONE (18:40)
[2022-05-06 22:00] VITALS: BP 129/71
[2022-05-07 02:00] VITALS: BP 125/70
[2022-05-07 07:10] LABS: BASOPHILS # (AUTO) 0.1 X10'3 (0-0.2); BASOPHILS % (AUTO) 0.7 % (0-1); EOSINOPHILS # (AUTO) 0.2 X10'3 (0-0.9); EOSINOPHILS % (AUTO) 2.6 % (0-6); HEMATOCRIT 25.9 % (42.0-52.0); HEMOGLOBIN 8.4 g/dl (14.0-17.9); LYMPHOCYTES # (AUTO) 0.9 X10'3 (1.1-4.8); LYMPHOCYTES % (AUTO) 11.2 % (21-51); MEAN CORPUSCULAR HEMOGLOBIN 25.4 PG (27.0-31.0); MEAN CORPUSCULAR HGB CONC 32.5 g/dL (33.0-36.5); MEAN CORPUSCULAR VOLUME 78.3 FL (78-98); MONOCYTES # (AUTO) 1.1 X10'3 (0-0.9); MONOCYTES % (AUTO) 13.5 % (2-12); NEUTROPHILS # (AUTO) 5.6 X10'3 (1.8-7.7); PLATELET COUNT 259 X10'3 (140-440); RED BLOOD COUNT 3.31 X10'6 (4.70-6.10); RED CELL DISTRIBUTION WIDTH 18.6 % (11.5-14.5); WHITE BLOOD COUNT 7.8 X10'3 (4.5-11.0)
[2022-05-07 07:15] LABS: ALBUMIN 2.7 G/DL (3.4-5.0); ANION GAP 6 (8-16); BLOOD UREA NITROGEN 16 MG/DL (7-18); BUN/CREATININE RATIO 16.5 (5.4-32.0); CALCIUM 8.8 MG/DL (8.5-10.1); CHLORIDE 93 MMOL/L (99-107); CREATININE 0.97 MG/DL (0.60-1.10); GLUCOSE 134 MG/DL (70-104); POTASSIUM 3.9 MMOL/L (3.5-5.1); SODIUM 129 MMOL/L (135-145); TOTAL CARBON DIOXIDE 29.8 MMOL/L (24-32); eGFR 74 ML/MIN
[2022-05-07 07:50] VITALS: BP 133/64
--- NOTE | 2022-05-07 07:52 | NUR ---
Problems reprioritized. Patient report given, questions answered & plan of care reviewed with Katya GARZA.
[2022-05-07] MEDS: pantoprazole 40mg IV 40 MG in normal saline 100ml IV soln 100 ML IV SCH (08:00)
[2022-05-07] MEDS: lisinopril 20mg tablet PO SCH (08:27)
[2022-05-07 08:28] VITALS: BP_SYST 134
[2022-05-07] MEDS: clopidogrel 75mg tablet PO SCH (08:28)
[2022-05-07] MEDS: atenolol 50mg tablet PO SCH (08:28)
[2022-05-07] MEDS: CefTRIAXone/D5W-Rocephin 1gm 50 ML IV SCH (08:41)
[2022-05-07] MEDS ORDERED: potassium Cl 20 mEq SR tablet PO STA (09:14)
[2022-05-07] MEDS ORDERED: furosemide 40mg/4ml inj IV ONE (09:15)
[2022-05-07] MEDS ORDERED: FURO-150 PO (09:19)
[2022-05-07] MEDS ORDERED: SPIR25TA5 PO (09:19)
--- NOTE | 2022-05-07 11:04 | NUR ---
Student documentation: I have reviewed and agree with all interventions, assessments performed and documented by Renae student nurse.
--- NOTE | 2022-05-07 11:04 | NUR ---
Student Medication Administration: For this medication-pass time frame, all medication were reviewed, dispensed, administered and documented per hospital policy by nusrat Macdonald nurse.
--- NOTE | 2022-05-07 11:04 | NUR ---
PAGER ID: [phone] MESSAGE: [phone], Roxanne Avina. Have you coordinated with everyone? can I discharge? Katya [facility] 1634
[2022-05-07] MEDS ORDERED: PANT-47 PO (11:05)
[2022-05-07] MEDS ORDERED: pantoprazole 40mg Tablet.DR PO SCH (11:05)
--- NOTE | 2022-05-07 17:40 | NUR ---
Patient stable for discharge per Dr. West. All discharge instructions reviewed with patient and all questions answered. Pt verbalized understanding. New medications e-scripted to Majninder Golden in [facility]. PIV discontinued, cannula intact. Tele discontinued. All belongings collected and sent with patient. Wheeled to lobby via nursing staff and picked up by spouse.
[2022-05-08] MEDS ORDERED: pantoprazole 40mg Tablet.DR PO SCH (07:30)
[2022-05-14 15:52] LABS: OCCULT BLOOD STOOL POSITIVE (Neg)
== END 2022-05-07 12:15 | disposition home health service (06) | DRG 377 ==
LOC: ER 09:43 → ED HOLD 12:20 → PCU 3S 22:30
PROVIDERS: ADMIT Internal Medicine; ATTEND Internal Medicine
PROC: 30233N1 Transfusion of Nonautologous Red Blood Cells into Peripheral Vein, Percutaneous Approach (ICD-10-PCS; principal; 2022-04-29)
PROC: 0DB98ZX Excision of Duodenum, Via Natural or Artificial Opening Endoscopic, Diagnostic (ICD-10-PCS; 2022-05-01)
PROC: 0W9B3ZZ Drainage of Left Pleural Cavity, Percutaneous Approach (ICD-10-PCS; 2022-05-05)
PROC: 0W993ZZ Drainage of Right Pleural Cavity, Percutaneous Approach (ICD-10-PCS; 2022-05-05)
DX: K29.81 Duodenitis with bleeding (principal); I21.A1 Myocardial infarction type 2; I50.23 Acute on chronic systolic (congestive) heart failure; J18.9 Pneumonia, unspecified organism; J96.00 Acute respiratory failure, unspecified whether with hypoxia or hypercapnia; J90 Pleural effusion, not elsewhere classified; J98.11 Atelectasis; D50.0 Iron deficiency anemia secondary to blood loss (chronic); E78.5 Hyperlipidemia, unspecified; E11.9 Type 2 diabetes mellitus without complications; I11.0 Hypertensive heart disease with heart failure; I25.10 Atherosclerotic heart disease of native coronary artery without angina pectoris; Z79.02 Long term (current) use of antithrombotics/antiplatelets; I25.2 Old myocardial infarction; Z79.82 Long term (current) use of aspirin; Z79.84 Long term (current) use of oral hypoglycemic drugs; Z87.891 Personal history of nicotine dependence; Z95.1 Presence of aortocoronary bypass graft; Z90.49 Acquired absence of other specified parts of digestive tract
CPT/HCPCS: 32555; 36415; 36430; 43239; 71045; 74176; 80048; 80053; 82272; 82945; 82948; 83036; 83615; 83735; 83880; 83986; 84145; 84157; 84484; 85008; 85025; 85027; 86885; 86900; 86901; 86920; 87070; 87081; 88305; 88342; 89051; 93005; 93306; 97116; 97161; 97530; 99152; 99291; A4349; A4620; C9113; G0378; J0456; J0696; J1940; J2250; J2270; J3010; J3490; J7030; J7040; J7050; P9016

== ENCOUNTER 2022-06-10 12:03 | Emergency (ER) | payer MEDICARE, BC ==
[~2022-06-10] VITALS: Ht 177.8 cm; Wt 84.0 kg
[~2022-06-10 12:03] MED LIST changes: -ASCO500C18 PO; -ASPI-1265 PO; +ASPI-611 PO; +ATEN50TA41 PO; -ATOR40TA PO; -BISO1TAB39 PO; -CHOL10002 PO; -FAMO-1 PO; -GLUC15006 PO; -KRIL1CAP19 PO; -LISI-222 PO; +LISI20TA28 PO; -METF-436 PO; +METF-438 PO; -METH500C6 PO; -NABU-102 PO; -NIFE-34 PO; -NITR0.4T SL; -OMEG1CAP54 PO; +PANT-47 PO; +SPIR25TA5 PO
[2022-06-10 12:09] VITALS: BP 169/70
[2022-06-10] MEDS ORDERED: LIDOcaine 4% (40 mg/ml) topical solution 50ml TP ONE (15:10)
[2022-06-10] MEDS ORDERED: oxymetazoline 15 ML nasal spray NS ONE (15:10)
[2022-06-10] MEDS ORDERED: silver nitrate applicator stick TP ONE (16:35)
== END 2022-06-10 17:29 | disposition home or self-care (01) ==
LOC: ER 12:04
DX: R04.0 Epistaxis (principal); J44.9 Chronic obstructive pulmonary disease, unspecified; I51.9 Heart disease, unspecified; Z79.899 Other long term (current) drug therapy; Z79.82 Long term (current) use of aspirin
CPT/HCPCS: 30901; 99284

== ENCOUNTER 2023-01-13 05:29 | Day surgery (SDC) | payer MEDICARE, BC ==
[2023-01-12 10:11] LABS: BASOPHILS # (AUTO) 0.1 X10'3 (0-0.2); BASOPHILS % (AUTO) 0.8 % (0-1); EOSINOPHILS # (AUTO) 0.2 X10'3 (0-0.9); EOSINOPHILS % (AUTO) 2.7 % (0-6); HEMATOCRIT 33.5 % (42.0-52.0); HEMOGLOBIN 11.4 g/dl (14.0-17.9); LYMPHOCYTES # (AUTO) 0.9 X10'3 (1.1-4.8); LYMPHOCYTES % (AUTO) 11.9 % (21-51); MEAN CORPUSCULAR HEMOGLOBIN 31.6 PG (27.0-31.0); MONOCYTES # (AUTO) 0.8 X10'3 (0-0.9); MONOCYTES % (AUTO) 10.1 % (2-12); NEUTROPHILS # (AUTO) 5.8 X10'3 (1.8-7.7); NEUTROPHILS % (AUTO) 74.5 % (42-75); PLATELET COUNT 285 X10'3 (140-440); RED CELL DISTRIBUTION WIDTH 14.8 % (11.5-14.5); WHITE BLOOD COUNT 7.8 X10'3 (4.5-11.0)
[2023-01-12 10:22] LABS: ALANINE AMINOTRANSFERASE 22 U/L (12-78); ALBUMIN 3.4 G/DL (3.4-5.0); ALBUMIN/GLOBULIN RATIO 0.8 (1.1-1.5); ALKALINE PHOSPHATASE 110 IU/L (46-116); ANION GAP 5 (8-16); ASPARTATE AMINO TRANSFERASE 26 U/L (10-37); BILIRUBIN,TOTAL 0.7 MG/DL (0.1-1.0); BLOOD UREA NITROGEN 15 MG/DL (7-18); CALCIUM 9.5 MG/DL (8.5-10.1); CHLORIDE 95 MMOL/L (99-107); CREATININE 1.25 MG/DL (0.60-1.10); POTASSIUM 4.9 MMOL/L (3.5-5.1); SODIUM 126 MMOL/L (135-145); TOTAL CARBON DIOXIDE 25.7 MMOL/L (24-32); TOTAL PROTEIN 7.6 G/DL (6.4-8.2); eGFR 55 ML/MIN
[2023-01-12 10:24] LABS: GLUCOSE 238 MG/DL (70-104)
[2023-01-13] VITALS (13 sets, daily range): BP systolic 103–136; BP diastolic 52–70; PULSE 61–75; RESP 14–16; TEMP 98; O2SAT 96–100
[~2023-01-13] VITALS: Ht 177.8 cm; Wt 88.0 kg
[2023-01-13] MEDS ORDERED: LORazepam 0.5 MG tablet PO PRN (06:15)
[2023-01-13] MEDS ORDERED: diphenhydrAMINE 25mg capsule PO PRN (06:15)
[2023-01-13] MEDS ORDERED: sodium bicarbonate 1meq/ml syr 150 ML in dextrose 5%-water 1,000 ML IV SCH (06:15)
[2023-01-13] MEDS ORDERED: normal saline 1,000 ML IV SCH (06:15)
[2023-01-13] MEDS ORDERED: acetylcysteine 200 MG/ml 4ml vial PO PRN (06:17)
[2023-01-13] MEDS ORDERED: PANT-47 PO (06:30)
[2023-01-13] MEDS ORDERED: ATOR-2 PO (06:30)
[2023-01-13] MEDS ORDERED: FURO-150 PO (06:30)
[2023-01-13] MEDS ORDERED: SPIR25TA5 PO (06:30)
[2023-01-13] MEDS ORDERED: MULT-1085 PO (06:30)
[2023-01-13] MEDS ORDERED: midazolam 1 mg/ML 2ml injection ONE (07:14)
[2023-01-13] MEDS ORDERED: iohexol 350 MG/ML 50ML vial IV ONE (07:14)
[2023-01-13] MEDS ORDERED: LIDOcaine 1% (10mg/ml) 2ml vial ONE (07:14)
[2023-01-13] MEDS ORDERED: fentaNYL/PF 50MCG/1 ML 2ML syringe ONE (07:14)
[2023-01-13] MEDS ORDERED: verapamil 2.5 mg/ml inj IV ONE (07:14)
[2023-01-13] MEDS ORDERED: heparin 1,000unit/ml 10ml vial 10 ML ONE (07:15)
[2023-01-13] MEDS ORDERED: iohexol 350MG/ML 100ml bottle IV ONE ×3 (07:15→09:26)
[2023-01-13] MEDS ORDERED: nitroGLYCERIN 500mcg/5mL D5W 5 ML IV ONE ×2 (07:19→09:36)
[2023-01-13 07:22] LABS: PROTHROMBIN TIME 10.8 SECONDS (9.0-12.0)
[2023-01-13] MEDS ORDERED: LIDOcaine 1% 30ml preserv. free vial ONE (08:39)
[2023-01-13] MEDS ORDERED: heparin 25,000 UNIT/250ml bag 250 ML IV ONE (09:24)
[2023-01-13] MEDS ORDERED: normal saline 1000ml 1,000 ML IV SCH (10:40)
== END 2023-01-13 17:05 | disposition home or self-care (01) ==
LOC: SSTAY O 05:29
PROVIDERS: ATTEND Internal Medicine Cardiovascular Disease
DX: I25.719 Atherosclerosis of autologous vein coronary artery bypass graft(s) with unspecified angina pectoris (principal); I10 Essential (primary) hypertension; E78.5 Hyperlipidemia, unspecified; I25.2 Old myocardial infarction; E66.3 Overweight; Z68.27 Body mass index [BMI] 27.0-27.9, adult; I08.1 Rheumatic disorders of both mitral and tricuspid valves; Z79.84 Long term (current) use of oral hypoglycemic drugs; Z79.899 Other long term (current) drug therapy; Z95.5 Presence of coronary angioplasty implant and graft; Z87.891 Personal history of nicotine dependence; Z79.01 Long term (current) use of anticoagulants; Z90.49 Acquired absence of other specified parts of digestive tract; Z82.49 Family history of ischemic heart disease and other diseases of the circulatory system; Z82.3 Family history of stroke
CPT/HCPCS: 36415; 76937; 80053; 82948; 85025; 85347; 85610; 93005; 93459; 99152; 99153; C1725; C1751; C9607; J1644; J2250; J3010; J3490; J7030; J7070; Q0163; Q9967; 36904; A6258; A6449; C1769; C1894; C9604